=== PATIENT | female | born 1990 | race Caucasian/White ===

== ENCOUNTER 2021-12-26 11:51 | Emergency (ER) | payer SELFPAY ==
--- NOTE | 2021-12-26 13:01 | RAD REPORT ---
EXAM DESCRIPTION: [place] Single View12/26/2021 12:30 pm CLINICAL HISTORY: Chest pain COMPARISON: none FINDINGS: The lungs appear clear of acute infiltrate. The heart is normal size IMPRESSION: No acute abnormalities displayed
[2021-12-26] MEDS ORDERED: METOCLOPRAMIDE 10 MG/2mL INJ ONE (13:54)
[2021-12-26] MEDS ORDERED: KETOROLAC 30 MG/ML INJ ONE (13:54)
[2021-12-26] MEDS ORDERED: NA CHLORIDE 0.9% 1,000 ML ONE (13:54)
[2021-12-26 14:07] LABS: BUN Blood Urea Nitrogen 15 mg/dL (7-18); Bicarbonate 29 mmol/L (21-32); Glomerular Filtration Rate 104 ml/min (=/>90); Glucose Level 93 mg/dL (74-106); Potassium 3.8 mmol/L (3.5-5.1); Sodium Level 135 mmol/L (136-145)
[2021-12-26 14:09] LABS: Troponin High Sensitivity < 3.0 pg/mL (<58.9)
[2021-12-26 14:43] LABS: Hematocrit 35.4 % (36.0-45.0); MCV 91.7 fL (80-100); RBC Red Blood Cell Count 3.86 M/uL (3.86-4.86)
[2021-12-26 14:44] LABS: Absolute Lymphocytes (CBC) 2.6 K/uL (0.7-4.9); Lymphocytes % 57.6 % (15.3-44.8); MPV 8.2 fL (7.6-11.3)
--- NOTE | 2021-12-26 14:48 | ER ---
Nurse's Notes [facility] Name: Kaylen Salinas Age: 31 yrs Sex: Female : 1990 Arrival Date: 12/26/2021 Time: 11:53 Bed 7 Private MD: Diagnosis: Chest pain, unspecified;Headache Presentation: 12/26 11:56 Chief complaint: Patient states: intermittent chest pain that began yesterday described tp1 as stabbing and worsens with deep breathing, rated 5/10. intermittent headache described as throbbing, rated 5/10. denies dizziness, blurred vision, N/V. Coronavirus screen: Vaccine status: Patient reports receiving the 2nd dose of the covid vaccine. Ebola Screen: Patient negative for fever greater than or equal to 101.5 degrees Fahrenheit, and additional compatible Ebola Virus Disease symptoms Patient denies exposure to infectious person. Patient denies travel to an Ebola-affected area in the 21 days before illness onset. Initial Sepsis Screen: Does the patient meet any 2 criteria? No. Patient's initial sepsis screen is negative. Does the patient have a suspected source of infection? No. Patient's initial sepsis screen is negative. Risk Assessment: Do you want to hurt yourself or someone else? Patient reports no desire to harm self or others. Onset of symptoms was December 25, 2021. 11:56 Method Of Arrival: Ambulatory tp1 11:56 Acuity: ANA 3 tp1 Triage Assessment: 11:59 General: Appears in no apparent distress. uncomfortable, Behavior is calm, cooperative. tp1 Pain: Complains of pain in chest and head. Neuro: Unger Agitation-Sedation Scale (RASS): 0 - Alert and Calm Level of Consciousness is awake, alert, obeys commands, Oriented to person, place, time, situation. Cardiovascular: Denies lightheadedness, nausea, vomiting, Patient's skin is warm and dry. 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 - Social history:: Smoking status: Patient/guardian denies using tobacco, Stopped _ months ago 2. Screenin:39 Abuse screen: Denies threats or abuse. Nutritional screening: No deficits noted. tw2 Tuberculosis screening: No symptoms or risk factors identified. Fall Risk None identified. Assessment: 13:47 Pain: Pain does not radiate. Pain began. tw2 13:58 Reassessment: No changes from previously documented assessment. Patient and/or family tw2 updated on plan of care and expected duration. Pain level reassessed. Patient is alert, oriented x 3, equal unlabored respirations, skin warm/dry/pink. 14:55 Reassessment: Patient appears in no apparent distress at this time. Patient and/or tw2 family updated on plan of care and expected duration. Pain level reassessed. Patient is alert, oriented x 3, equal unlabored respirations, skin warm/dry/pink. Patient states feeling better. Patient states symptoms have improved. Vital Signs: 11:56 BP 103 / 54; Pulse 55; Resp 16; Temp 98.1; Pulse Ox 98% on R/A; Weight 74.84 kg; Height tp1 5 ft. 3 in. (160.02 cm); 13:58 BP 90 / 62; Pulse 49; Resp 16; Pulse Ox 100% on R/A; Pain 5/10; tw2 14:30 BP 97 / 76; Pulse 51; Resp 17; Pulse Ox 100% on R/A; tw2 14:47 BP 107 / 71; Pulse 56; Resp 17; Pulse Ox 100% on R/A; tw2 11:56 Body Mass Index 29.23 (74.84 kg, 160.02 cm) tp1 ED Course: 11:53 Patient arrived in ED. rg4 11:55 Shiraz Rice MD is Attending Physician. bs3 11:59 Triage completed. tp1 12:04 Arm band placed on. tp1 12:31 Chest Single View XRAY In Process Unspecified. EDMS 13:17 Bed in low position. Call light in reach. 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 Pulse ox on. NIBP on. tw2 Warm blanket given. 13:38 Piedad Wells RN is Primary Nurse. tw2 13:39 Attending Physician role handed off by Shriaz Rice MD ms3 13:39 Alon Easley DO is Attending Physician. ms3 13:41 Missed attempt(s): 20 gauge in right antecubital area. Bleeding controlled, band aid jw7 applied, catheter tip intact. 13:43 Initial lab(s) drawn, by ED staff, sent to lab. Inserted saline lock: 22 gauge in left dh3 forearm, using aseptic technique. Blood collected. 13:47 Patient maintains SpO2 saturation greater than 95% on room air. tw2 14:47 Mukul Corona DO is Referral Physician. ms3 14:55 No provider procedures requiring assistance completed. IV discontinued, intact, tw2 bleeding controlled, No redness/swelling at site. Pressure dressing applied. Administered Medications: 13:52 Drug: NS 0.9% 1000 ml Route: IV; Rate: 1 bolus; Site: left antecubital; tw2 14:46 Follow up: Response: No adverse reaction; IV Status: Completed infusion; IV Intake: tw2 1000ml 13:52 Drug: Reglan (metoCLOPramide) 10 mg Route: IVP; Site: left antecubital; tw2 14:46 Follow up: Response: No adverse reaction tw2 13:55 Drug: Ketorolac 15 mg Route: IVP; Site: left antecubital; tw2 14:46 Follow up: Response: No adverse reaction; Pain is decreased tw2 Medication: 13:47 VIS not applicable for this client. tw2 Intake: 14:46 IV: 1000ml; Total: 1000ml. tw2 Outcome: 14:47 Discharge ordered by . ms3 14:55 Discharged to home ambulatory. tw2 14:55 Condition: stable 14:55 Discharge instructions given to patient, Instructed on discharge instructions, follow up and referral plans. Demonstrated understanding of instructions, follow-up care. 14:56 Patient left the ED. tw2 Signatures: Dispatcher [employer] EDMS Piedad Wells RN RN tw2 Luba Phan 4 Selene Rosenthal [facility] Alon Easley DO DO ms3 Danielle Beckman RN RN tp1 Sanjuana Howard jw7 Shiraz Rice MD MD bs3 Corrections: (The following items were deleted from the chart) 14:47 14:44 BP 97 / 76; Pulse 51bpm; Resp 17bpm; Pulse Ox 100% RA; tw2 tw2
--- NOTE | 2021-12-26 14:48 | EDPHYS ---
Physician Documentation [facility] Name: Kaylen Salinas Age: 31 yrs Sex: Female : 1990 Arrival Date: 12/26/2021 Time: 11:53 Bed 7 Private MD: ED Physician Alon Easley HPI: 12/26 12:07 This 31 yrs old Female presents to ER via Ambulatory with complaints of Chest bs3 Pain, Headache. 12:07 The patient or guardian reports chest pain that is located primarily in the anterior bs3 aspect of left upper chest. The pain does not radiate. Associated signs and symptoms: The patient has no apparent associated signs or symptoms. The chest pain is described as aching. Duration: The patient or guardian reports multiple episodes, that wax and wane. Modifying factors: the symptoms are aggravated by breathing. Notes that she was at her home yesterday cleaning dishes when she developed left-sided chest pain it last minutes at a time worse with inspiration she then developed a headache as well the chest pain does not radiate it is moderate intensity worse with breathing she denies any numbness tingling or weakness she notes that the headache is not associated with blurry vision neck pain or stiffness or anything else it was gradual in onset headache not associated with syncope or anything else she does note that she has a history of she is supposed to be on 3 medications . 13:23 Pt also endorses hx of depression, anxiety, bipolar disorder, no current si/hi. 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 - Social history:: Smoking status: Patient/guardian denies using tobacco, Stopped _ months ago 2. ROS: 13:05 Constitutional: Negative for body aches, chills. bs3 13:05 Eyes: Negative for acute changes, blurry vision. 13:05 ENT: Negative for injury or acute deformity, Gum pain 13:05 Neck: Negative for pain with movement, stiffness, tenderness. 13:05 Cardiovascular: Positive for chest pain, Negative for orthopnea, palpitations. 13:05 Respiratory: Negative for cough, hemoptysis, shortness of breath. 13:05 Abdomen/GI: Negative for abdominal pain, nausea and vomiting, nausea, vomiting, and diarrhea. 13:05 All other systems are negative. 14:48 Constitutional: Negative for fever, and chills. ms3 Exam: 13:07 Constitutional: This is a well developed, well nourished patient who is awake, alert, bs3 and in no acute distress. Head/Face: Normocephalic, atraumatic. Eyes: Pupils equal round and reactive to light, extra-ocular motions intact. Lids and lashes normal. ENT: mmm, no posterior phyarngeal erythema Neck: Trachea midline, no thyromegaly, no neck stiffness Chest/axilla: Normal chest wall appearance and motion. Nontender with no deformity. No lesions are appreciated. Cardiovascular: Regular rate and rhythm with a normal S1 and S2. symmetric pulses in upper extremities Respiratory: Lungs have equal breath sounds bilaterally, clear to auscultation, no respiratory distress Abdomen/GI: Soft, non-tender, no rebound or guarding Back: No spinal tenderness. No costovertebral tenderness. Full range of motion. Skin: Warm, dry with normal turgor. Normal color with no rashes, no lesions, and no evidence of cellulitis. MS/ Extremity: Pulses equal, no cyanosis. Neurovascular intact. Full, normal range of motion. Neuro: Awake and alert, GCS 15, oriented to person, place, time, and situation. Cranial nerves II-XII grossly intact. Motor strength 5/5 in all extremities. Sensory grossly intact. Psych: Awake, alert, with orientation to person, place and time. Behavior, mood, and affect are within normal limits. Vital Signs: 11:56 BP 103 / 54; Pulse 55; Resp 16; Temp 98.1; Pulse Ox 98% on R/A; Weight 74.84 kg; Height tp1 5 ft. 3 in. (160.02 cm); 13:58 BP 90 / 62; Pulse 49; Resp 16; Pulse Ox 100% on R/A; Pain 5/10; tw2 14:30 BP 97 / 76; Pulse 51; Resp 17; Pulse Ox 100% on R/A; tw2 14:47 BP 107 / 71; Pulse 56; Resp 17; Pulse Ox 100% on R/A; tw2 11:56 Body Mass Index 29.23 (74.84 kg, 160.02 cm) tp1 MDM: 13:11 Differential diagnosis: acute myocardial infarction, acute pericarditis, coronary bs3 artery disease pulmonary embolus. HEART Score: History: Slightly Suspicious (0), ECG: Normal (0), Age: < or = 45 years (0), Risk Factors: No Risk Factors Known (0), Troponin: < or = 1 x Normal Limit (0), Total Score = 1. The patient's pulmonary embolism risk score was calculated as follows: No Risks (0 Pts). ED course: 31yo with headache, and chest pain, perc neg, venetie ira sah neg, no blurry vision, no neck pain, not consistent with dissection, possible msk/migraine/stress (pt uninsured, hx of anxiety/depression/bipolar) pt needs outpatient f/u. Will r/o acs, will r/o pna. ED course: ecg without st elevaiton or depression qtc 484, sinus bradycardia at 51. 13:22 Patient medically screened. bs3 13:39 Transition of care: Care assumed from Shiraz Rice MD. ms3 14:47 Data reviewed: vital signs, nurses notes, lab test result(s), EKG, radiologic studies, ms3 and as a result, I will discharge patient. Data interpreted: monitor technician: rate is 55 beats/min, rhythm is sinus bradycardia, with no ectopy, Interpretation: normal rhythm, bradycardia. Counseling: I had a detailed discussion with the patient and/or guardian regarding: the historical points, exam findings, and any diagnostic results supporting the discharge/admit diagnosis, lab results, radiology results, the need for outpatient follow up, to return to the emergency department if symptoms worsen or persist or if there are any questions or concerns that arise at home. ED course: Patient improved, alert and oriented x4, in no apparent distress, nontoxic-appearing, ambulatory in emergency department. Patient to follow-up with Dr. Corona within 48 hours. Patient stands and agrees with plan. All questions were answered. Return precautions discussed include worsening symptoms, or any other concerns.. 12/26 12:07 Order name: CBC with Diff; Complete Time: 14:49 bs3 12/26 12:07 Order name: BMP; Complete Time: 14:34 bs3 12/26 12:07 Order name: Troponin High Sensitivity; Complete Time: 14:34 bs3 12/26 12:07 Order name: Chest Single View XRAY; Complete Time: 13:22 bs3 12/26 12:07 Order name: EKG; Complete Time: 12:08 bs3 12/26 13:39 Order name: IV Start; Complete Time: 13:40 tw2 Administered Medications: 13:52 Drug: NS 0.9% 1000 ml Route: IV; Rate: 1 bolus; Site: left antecubital; tw2 14:46 Follow up: Response: No adverse reaction; IV Status: Completed infusion; IV Intake: tw2 1000ml 13:52 Drug: Reglan (metoCLOPramide) 10 mg Route: IVP; Site: left antecubital; tw2 14:46 Follow up: Response: No adverse reaction tw2 13:55 Drug: Ketorolac 15 mg Route: IVP; Site: left antecubital; tw2 14:46 Follow up: Response: No adverse reaction; Pain is decreased tw2 Disposition Summary: 12/26/21 14:47 Discharge Ordered Location: Home ms3 Condition: Stable ms3 Diagnosis - Chest pain, unspecified ms3 - Headache ms3 Followup: ms3 - With: - When: 48 Hours - Reason: Recheck today's complaints, Re-evaluation by your physician Discharge Instructions: - Discharge Summary Sheet tw2 - Nonspecific Chest Pain, Adult ms3 - General Headache Without Cause ms3 Forms: - Work release form tw2 - Medication Reconciliation Form ms3 - Thank You Letter ms3 - Antibiotic Education ms3 - Prescription Opioid Use ms3 Signatures: Dispatcher [employer] Piedad Car RN RN tw2 Alon Easley DO DO ms3 Danielle Beckman RN RN tp1 Shiraz Rice MD MD bs3 Corrections: (The following items were deleted from the chart) 14:54 12:07 Urine Test ordered. bs3 tw2
[2021-12-26 15:01] VITALS: TEMP 98.1
[2021-12-26 15:04] VITALS: O2SAT 100
[2021-12-26 15:09] VITALS: BP 107/71
--- NOTE | 2021-12-27 13:58 | EKG ---
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
== END 2021-12-26 14:56 | disposition home or self-care (01) ==
LOC: ER 11:51
DX: R07.89 Other chest pain (principal); R51.9 Headache, unspecified; E03.9 Hypothyroidism, unspecified; F31.9 Bipolar disorder, unspecified
CPT/HCPCS: 36415; 71045; 80048; 84484; 85025; 93005; J2765; J7030

== ENCOUNTER 2023-02-11 17:13 | Emergency (ER) | payer SELFPAY ==
--- NOTE | 2023-02-11 17:40 | ER ---
Nurse's Notes [facility] Name: Kaylen Salinas Age: 32 yrs Sex: Female : 1990 Arrival Date: 02/11/2023 Time: 17:13 Bed IW1 Private MD: Diagnosis: Local infection of the skin and subcutaneous tissue, unspecified Presentation: 02/11 17:23 Chief complaint: Patient states: she has had a bite on her right middle finger for ap3 approx one week. patient is also feeling ill, but is feeling better. patient complains of not having much of an appetite and increase worsening in appearance of right middle finger. Coronavirus screen: At this time, the client does not indicate any symptoms associated with coronavirus-19. Ebola Screen: No symptoms or risks identified at this time. Initial Sepsis Screen: Does the patient meet any 2 criteria? No. Patient's initial sepsis screen is negative. Does the patient have a suspected source of infection? Yes: Skin breakdown/wound. Risk Assessment: Do you want to hurt yourself or someone else? Patient reports no desire to harm self or others. Onset of symptoms was February 04, 2023. 17:23 Method Of Arrival: Ambulatory ap3 17:23 Acuity: ANA 4 ap3 Triage Assessment: 17:28 Bite description: bite sustained to dorsal aspect of distal phalanx of right middle ap3 finger by an unknown animal, animal information: vaccination(s) is not applicable. General: Appears in no apparent distress. Behavior is calm, cooperative, appropriate for age. Pain: Complains of pain in dorsal aspect of distal phalanx of right middle finger. Neuro: Level of Consciousness is awake, alert, obeys commands, Oriented to person, place, time, situation. Cardiovascular: Patient's skin is warm and dry. Respiratory: Airway is patent Respiratory effort is even, unlabored, Respiratory pattern is regular, symmetrical. 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 - Social history:: Smoking status: Patient denies any tobacco usage or history of. Screenin:28 [facility] ED Fall Risk Assessment (Adult) History of falling in the last 3 months, ap3 including since admission No falls in past 3 months (0 pts). Abuse screen: Denies threats or abuse. Nutritional screening: No deficits noted. Tuberculosis screening: No symptoms or risk factors identified. Assessment: 17:29 Derm: Skin wound right middle finger Skin is. ap3 Vital Signs: 17:23 BP 103 / 58; Pulse 64; Resp 18; Temp 98.2; Pulse Ox 100% ; Weight 74.84 kg; Pain 2/10; ap3 17:23 Pain Scale: Adult ap3 ED Course: 17:19 Patient arrived in ED. mg5 17:21 [facility] kb 17:21 Alon Easley DO is Attending Physician. kb 17:25 Triage completed. ap3 17:29 Arm band placed on right wrist. ap3 17:29 No provider procedures requiring assistance completed. Patient did not have IV access ap3 during this emergency room visit. 17:30 Patient has correct armband on for positive identification. Adult w/ patient. ap3 18:15 Provided Education on: discharge instructions. ap3 Administered Medications: No medications were administered Medication: 17:29 VIS not applicable for this client. ap3 Outcome: 17:29 Condition: good ap3 17:39 Discharge ordered by . kb 18:15 Discharged to home ap3 18:15 Discharge instructions given to patient, 18:15 Instructed on discharge instructions, follow up and referral plans. medication usage, Demonstrated understanding of instructions, follow-up care, medications, Prescriptions given X 3, 18:15 Patient left the ED. ap3 Signatures: Sangita Shaw FNP-C FNP-Ckb Prokisch, Amanda, RN RN ap3 Amber Landry mg5
--- NOTE | 2023-02-11 17:40 | EDPHYS ---
Physician Documentation [facility] Name: Kaylen Salinas Age: 32 yrs Sex: Female : 1990 Arrival Date: 02/11/2023 Time: 17:13 Bed IW1 Private MD: ED Physician Alon Easley HPI: 02/11 17:38 This 32 yrs old Female presents to ER via Ambulatory with complaints of Insect Bite. kb 17:38 the patient presents with a swollen area of the dorsal aspect of distal phalanx of kb right middle finger. Description: erythematous, swollen. Onset: The symptoms/episode began/occurred 1 week(s) ago. Possible cause(s): unknown. Associated signs and symptoms: Pertinent positives: erythema, swelling. Modifying factors: the symptoms are alleviated by nothing, the symptoms are aggravated by pressure, touching. Severity of symptoms: At their worst the symptoms were moderate, in the emergency department the symptoms are unchanged. The patient has not experienced similar symptoms in the past. The patient has not recently seen a physician. Pt reports she believes she was bitten by something on right middle finger. Reports redness and swelling to area. States it drained, but is still red and swollen. 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 - Social history:: Smoking status: Patient denies any tobacco usage or history of. ROS: 17:36 Constitutional: Negative for fever, chills, and weight loss, kb 17:36 Skin: Positive for erythema, swelling, of the dorsal aspect of distal phalanx of right middle finger, 17:36 All other systems are negative, Exam: 17:36 Constitutional: This is a well developed, well nourished patient who is awake, alert, kb and in no acute distress. Head/Face: Normocephalic, atraumatic. ENT: Moist Mucous membranes Cardiovascular: Regular rate Respiratory: Respirations even and unlabored. No increased work of breathing. Talking in full sentences MS/ Extremity: Pulses equal, no cyanosis. Neurovascular intact. Full, normal range of motion. Neuro: Awake and alert, GCS 15, oriented to person, place, time, and situation. Moves all extremities. Normal gait. 17:36 Skin: Appearance: normal except for affected area, Color: erythematous, swelling, Vital Signs: 17:23 BP 103 / 58; Pulse 64; Resp 18; Temp 98.2; Pulse Ox 100% ; Weight 74.84 kg; Pain 2/10; ap3 17:23 Pain Scale: Adult ap3 MDM: 17:21 Patient medically screened. kb 17:36 Data reviewed: vital signs, nurses notes. kb 17:39 Differential diagnosis: abscess, allergic reaction, cellulitis, insect bite. kb Counseling: I had a detailed discussion with the patient and/or guardian regarding the historical points, exam findings, and any diagnostic results supporting the discharge/admit diagnosis, the need for outpatient follow up, a family practitioner, to return to the emergency department if symptoms worsen or persist or if there are any questions or concerns that arise at home. ED course: No fluctuance or drainable abscess appreciated. Will prescribe antibiotics. Administered Medications: No medications were administered Disposition: 22:00 I was immediately available on-site in the Emergency Department for consultation in the dc3 care of the patient. Disposition Summary: 02/11/23 17:39 Discharge Ordered Notes: Location: Home kb Condition: Stable kb Diagnosis - Local infection of the skin and subcutaneous tissue, unspecified kb Followup: kb - With: Emergency Department - When: As needed - Reason: Worsening of condition Followup: kb - With: Private Physician - When: 2 - 3 days - Reason: Recheck today's complaints, Continuance of care, Re-evaluation by your physician Discharge Instructions: - Discharge Summary Sheet kb - Wound Infection, [id number] kb - Paronychia, [id number] kb Forms: - Medication Reconciliation Form kb - Thank You Letter kb - Antibiotic Education kb - Prescription Opioid Use kb - Patient Portal Instructions kb - Leadership Thank You Letter kb Prescriptions: - mupirocin 2 % Topical ointment - apply 1 application TOPICAL route 3 times per day; 1 unit; Refills: 0, Product kb Selection Permitted - Zofran 4 mg Oral tablet - take 1 tablet ORAL route every 6 hours As needed; 12 tablet; Refills: 0, kb Product Selection Permitted - Bactrim DS 800-160 mg Oral Tablet - take 1 tablet ORAL route every 12 hours for 7 days; 14 tablet; Refills: 0, kb Product Selection Permitted Signatures: Sangita Shaw FNP-C FNP-Ckb Prokisch, Amanda, RN RN ap3 Alon Easley DO DO ms3
[2023-02-11 18:59] VITALS: BP 103/58; TEMP 98.2; O2SAT 100
== END 2023-02-11 18:15 | disposition home or self-care (01) ==
LOC: ER 17:13
DX: L08.9 Local infection of the skin and subcutaneous tissue, unspecified (principal)
CPT/HCPCS: 99283

== ENCOUNTER 2023-03-11 19:46 | Emergency (ER) | payer SELFPAY ==
[2023-03-11 20:45] LABS: Specific Gravity 1.018 (1.005-1.030)
--- NOTE | 2023-03-11 20:53 | RAD REPORT ---
EXAM DESCRIPTION: RAD - Knee Left 3 View - 03/11/2023 8:41 pm CLINICAL HISTORY: PAIN COMPARISON: No comparisons TECHNIQUE: Left knee, 3 views. FINDINGS: Sequelae of left proximal tibial plate and screw fixation. Osseous along the lateral tibia l plateau and subchondral compression deformity along the medial tibial plateau are favored to be chr onic. Moderately prominent tibial tuberosity. No evidence of an acute fracture, dislocation or perios teal reaction.Up to date, most pronounced medially. No significant effusion. Clinical concerns for internal derangement or occult bony injury could be further assessed with MR im aging. IMPRESSION: No acute osseus abnormality. Chronic findings as above.
[2023-03-11] MEDS ORDERED: KETOROLAC 30 MG/ML INJ ONE (21:01)
--- NOTE | 2023-03-11 21:13 | RAD REPORT ---
EXAM DESCRIPTION: US - Extremity Venous Uni Ltd - 03/11/2023 9:04 pm CLINICAL HISTORY: Pain COMPARISON: None. TECHNIQUE: Real-time sonographic evaluation of the left lower extremity deep venous system was perfo rmed. FINDINGS: Normal compressibility, flow augmentation, phasic flow and spontaneous flow is identified in the left lower extremity deep venous system. No intraluminal filling defects seen. IMPRESSION: No DVT in the left lower extremity.
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
[2023-03-11 22:16] VITALS: TEMP 98.1
[2023-03-11 22:18] VITALS: O2SAT 100
[2023-03-11 22:20] VITALS: BP 90/62
== END 2023-03-11 22:08 | disposition home or self-care (01) ==
LOC: ER 19:46
DX: M25.562 Pain in left knee (principal)
CPT/HCPCS: 81025; 93971; 96372; 99285

== ENCOUNTER 2023-07-28 17:28 | Emergency (ER) | payer SELFPAY ==
[2023-07-28] MEDS ORDERED: KETOROLAC 30 MG/ML INJ ONE (19:21)
[2023-07-28] MEDS ORDERED: dexAMETHasone 10 MG/ML VIAL ONE (19:21)
[2023-07-28] MEDS ORDERED: DIPHENHYDRAMINE 50 MG/ML VIAL ONE (19:22)
[2023-07-28] MEDS ORDERED: METOCLOPRAMIDE 10 MG/2mL INJ ONE (19:22)
[2023-07-28] MEDS ORDERED: NA CHLORIDE 0.9% 1,000 ML ONE (19:22)
--- NOTE | 2023-07-28 20:04 | ER ---
Nurse's Notes [facility] Name: Kaylen Salinas Age: 32 yrs Sex: Female : 1990 Arrival Date: 07/28/2023 Time: 17:28 Bed DX3 Private MD: Diagnosis: Headache Presentation: 07/27 17:55 Chief complaint: Patient states: Nose bleed yesterday, frontal headache since yesterday ph as well, denies N/V or sensitivity to light or sound. Coronavirus screen: Vaccine status:. Ebola Screen: No symptoms or risks identified at this time. Initial Sepsis Screen: Does the patient meet any 2 criteria? No. Patient's initial sepsis screen is negative. Does the patient have a suspected source of infection?. Risk Assessment: Do you want to hurt yourself or someone else? Patient reports no desire to harm self or others. Onset of symptoms was July 28, 2023. 17:55 Method Of Arrival: Ambulatory ph 17:55 Acuity: ANA 3 ph Triage Assessment: 17:58 Headache History: The patient has had previous headaches. General: Appears in no ph apparent distress. Behavior is calm, cooperative. Pain: Complains of pain in top of head, right uatsdin and left uatsdin. Neuro: Level of Consciousness is awake, alert, obeys commands, Oriented to person, place, time, situation. 20:24 Pain: Pain currently is 4 out of 10 on a pain scale. Pain began 1 day ago. Also lg3 complains of photophobia. Historical: - Allergies: 17:57 No Known Allergies; ph - PMHx: 17:57 Anxiety; Bipolar disorder; depressive disorder; hypoadrenalism; HYPOPITUITARISM; ph Hypothyroidism; PTSD; - Immunization history:: Adult Immunizations unknown. - Infectious Disease History:: Denies. - Social history:: Smoking status: Patient reports the use of cigarette tobacco products, denies chronic smoking, but will smoke occasionally. Screenin:08 [facility] ED Fall Risk Assessment (Adult) History of falling in the last 3 months, lg3 including since admission No falls in past 3 months (0 pts). Abuse screen: Denies threats or abuse. Denies injuries from another. Nutritional screening: No deficits noted. Tuberculosis screening: No symptoms or risk factors identified. Assessment: 19:08 General: Appears in no apparent distress. uncomfortable, Behavior is calm, cooperative. lg3 Pain: Complains of pain in head Pain does not radiate. Neuro: Unger Agitation-Sedation Scale (RASS): 0 - Alert and Calm Level of Consciousness is awake, alert, obeys commands, Oriented to person, place, time, situation, Reports headache photophobia. Cardiovascular: No deficits noted. Denies chest pain, shortness of breath, Capillary refill < 3 seconds Clubbing of nail beds is absent JVD is absent Patient's skin is warm and dry. Respiratory: No deficits noted. Airway is patent Respiratory effort is even, unlabored, Respiratory pattern is regular, symmetrical, Breath sounds are clear bilaterally. GI: No deficits noted. No signs and/or symptoms were reported involving the gastrointestinal system. Abdomen is round non-distended. : No deficits noted. No signs and/or symptoms were reported regarding the genitourinary system. EENT: No deficits noted. No signs and/or symptoms were reported regarding the EENT system. Derm: No deficits noted. No signs and/or symptoms reported regarding the dermatologic system. Skin is intact, is healthy with good turgor, Skin is dry, Skin is normal, Skin temperature is warm. Musculoskeletal: No deficits noted. No signs and/or symptoms reported regarding the musculoskeletal system. Circulation, motion, and sensation intact. Range of motion: intact in all extremities. Vital Signs: 17:55 BP 108 / 56; Pulse 56; Resp 18; Temp 97.5; Pulse Ox 97% on R/A; Weight 68.04 kg; Height ph 5 ft. 4 in. ; 19:08 BP 113 / 69; Pulse 59; Resp 17 S; Temp 97.2; Pulse Ox 99% on R/A; lg3 20:24 BP 111 / 72; Pulse 57; Resp 17 S; Pulse Ox 98% on R/A; lg3 17:55 Body Mass Index 25.75 (68.04 kg, 162.56 cm) ph ED Course: 17:32 Patient arrived in ED. rg4 17:35 Alon Easley DO is Attending Physician. ms3 17:57 Triage completed. ph 17:58 Arm band placed on Patient placed in waiting room, Patient notified of wait time. ph 18:45 Inserted saline lock: 22 gauge in right antecubital area, using aseptic technique. bc6 19:08 Patient has correct armband on for positive identification. Warm blanket given. Family lg3 accompanied patient. 19:08 No provider procedures requiring assistance completed. Patient maintains SpO2 lg3 saturation greater than 95% on room air. 20:04 Gallo Cabrera MD is Referral Physician. ms3 20:04 Mukul Corona DO is Referral Physician. ms3 20:25 IV discontinued, intact, bleeding controlled, No redness/swelling at site. Pressure lg3 dressing applied. Administered Medications: 19:38 Drug: metoCLOPramide IVP 10 mg IVP once; over 1 to 2 minutes Route: IVP; Site: right lg3 antecubital; 20:20 Follow up: Response: No adverse reaction lg3 19:38 Drug: diphenhydrAMINE IVP 25 mg IVP once Route: IVP; Site: right antecubital; lg3 20:19 Follow up: Response: No adverse reaction; Marked relief of symptoms lg3 19:38 Drug: NS 0.9% IV 1000 ml IV at 1 bolus Per protocol; 1000 mL bolus Route: IV; Rate: 1 lg3 bolus; Site: right antecubital; 20:19 Follow up: IV Status: Completed infusion; IV Intake: 1000ml lg3 19:39 Drug: Ketorolac IVP 10 mg 10 mg IVP once Route: IVP; Site: right antecubital; lg3 20:20 Follow up: Response: No adverse reaction; Marked relief of symptoms lg3 19:39 Drug: Decadron - Dexamethasone IVP 10 mg IVP once Route: IVP; Site: right antecubital; lg3 20:20 Follow up: Response: No adverse reaction; Marked relief of symptoms lg3 Medication: 19:08 VIS not applicable for this client. lg3 Intake: 20:19 IV: 1000ml; Total: 1000ml. lg3 Outcome: 20:04 Discharge ordered by . ms3 20:25 Discharged to home ambulatory, lg3 20:25 Condition: stable 20:25 Discharge instructions given to patient, Instructed on discharge instructions, follow up and referral plans. Demonstrated understanding of instructions, follow-up care, 20:25 Patient left the ED. lg3 Signatures: Ama Rosas RN RN ph Garcia, Rubi 4 Andie Ang RN RN lg3 Alon Easley DO DO ms3 Tamika Rodriguez bc6
--- NOTE | 2023-07-28 20:04 | EDPHYS ---
Physician Documentation [facility] Name: Kaylen Salinas Age: 32 yrs Sex: Female : 1990 Arrival Date: 07/28/2023 Time: 17:28 Bed DX3 Private MD: ED Physician Alon Easley HPI: 07/27 20:12 This 32 yrs old Female presents to ER via Ambulatory with complaints of Headache. ms3 20:12 32-year-old female with past medical history anxiety, bipolar disorder, depression, ms3 hypoadrenalism, hypopituitary presents to the emergency department for headache that began yesterday. Patient rates pain a 6/10 and states it is located in her bilateral temporal region. Patient states she took ibuprofen with improvement of her headache. Patient denies any inciting factors. Patient denies weakness, nausea, vomiting, fevers, chills. Historical: - Allergies: 17:57 No Known Allergies; ph - PMHx: 17:57 Anxiety; Bipolar disorder; depressive disorder; hypoadrenalism; HYPOPITUITARISM; ph Hypothyroidism; PTSD; - Immunization history:: Adult Immunizations unknown. - Infectious Disease History:: Denies. - Social history:: Smoking status: Patient reports the use of cigarette tobacco products, denies chronic smoking, but will smoke occasionally. ROS: 20:12 Constitutional: Negative for fever, and chills. Neck: Negative for injury, pain, and ms3 swelling, Cardiovascular: Negative for chest pain, and palpitations. Respiratory: Negative for shortness of breath, cough, wheezing, and pleuritic chest pain, Abdomen/GI: Negative for abdominal pain, nausea, vomiting, diarrhea, and constipation, 20:12 Neuro: Positive for headache, Exam: 20:12 Constitutional: This is a well developed, well nourished patient who is awake, alert, ms3 and in no acute distress. Head/Face: Normocephalic, atraumatic. Neck: Trachea midline, no cervical lymphadenopathy. Supple, full range of motion without nuchal rigidity, or vertebral point tenderness. No Meningismus. Chest/axilla: Normal chest wall appearance and motion. Nontender with no deformity. Cardiovascular: Regular rate and rhythm with a normal S1 and S2. No gallops, murmurs, or rubs. Normal PMI, no JVD. No pulse deficits. Respiratory: Lungs have equal breath sounds bilaterally, clear to auscultation and percussion. No rales, rhonchi or wheezes noted. No increased work of breathing, no retractions or nasal flaring. Abdomen/GI: Soft, non-tender, with normal bowel sounds. No distension or tympany. No guarding or rebound. No evidence of tenderness throughout. Skin: Warm, dry with normal turgor. Normal color with no rashes, no lesions, and no evidence of cellulitis. MS/ Extremity: Pulses equal, no cyanosis. Neurovascular intact. Full, normal range of motion. Neuro: Awake and alert, GCS 15, oriented to person, place, time, and situation. Cranial nerves II-XII grossly intact. Motor strength 5/5 in all extremities. Sensory grossly intact. Cerebellar exam normal. Normal gait. Vital Signs: 17:55 BP 108 / 56; Pulse 56; Resp 18; Temp 97.5; Pulse Ox 97% on R/A; Weight 68.04 kg; Height ph 5 ft. 4 in. ; 19:08 BP 113 / 69; Pulse 59; Resp 17 S; Temp 97.2; Pulse Ox 99% on R/A; lg3 20:24 BP 111 / 72; Pulse 57; Resp 17 S; Pulse Ox 98% on R/A; lg3 17:55 Body Mass Index 25.75 (68.04 kg, 162.56 cm) ph MDM: 17:52 Patient medically screened. ms3 20:12 Differential diagnosis: hypertensive headache, migraine, tension headache. Data ms3 reviewed: vital signs, nurses notes, and as a result, I will discharge patient. I considered the following discharge prescriptions or medication management in the emergency department Medications were administered in the Emergency Department. See MAR. Counseling: I had a detailed discussion with the patient and/or guardian regarding the historical points, exam findings, and any diagnostic results supporting the discharge/admit diagnosis, the need for outpatient follow up, to return to the emergency department if symptoms worsen or persist or if there are any questions or concerns that arise at home. Special discussion: I discussed with the patient/guardian in detail that at this point there is no indication for admission to the hospital. It is understood, however, that if the symptoms persist or worsen the patient needs to return immediately for re-evaluation. ED course: On reevaluation patient is improved, alert and oriented x 4, no apparent distress, nontoxic-appearing, ambulatory in the emergency department. Patient to follow-up with neurology and primary care in 2 to 3 days. Patient understands and agrees with plan. All questions were answered. Return precautions discussed include worsening symptoms, or any other concerns. 07/27 18:19 Order name: IV Start; Complete Time: 18:45 ll1 Administered Medications: 19:38 Drug: metoCLOPramide IVP 10 mg IVP once; over 1 to 2 minutes Route: IVP; Site: right lg3 antecubital; 20:20 Follow up: Response: No adverse reaction lg3 19:38 Drug: diphenhydrAMINE IVP 25 mg IVP once Route: IVP; Site: right antecubital; lg3 20:19 Follow up: Response: No adverse reaction; Marked relief of symptoms lg3 19:38 Drug: NS 0.9% IV 1000 ml IV at 1 bolus Per protocol; 1000 mL bolus Route: IV; Rate: 1 lg3 bolus; Site: right antecubital; 20:19 Follow up: IV Status: Completed infusion; IV Intake: 1000ml lg3 19:39 Drug: Ketorolac IVP 10 mg 10 mg IVP once Route: IVP; Site: right antecubital; lg3 20:20 Follow up: Response: No adverse reaction; Marked relief of symptoms lg3 19:39 Drug: Decadron - Dexamethasone IVP 10 mg IVP once Route: IVP; Site: right antecubital; lg3 20:20 Follow up: Response: No adverse reaction; Marked relief of symptoms lg3 Disposition Summary: 07/28/23 20:04 Discharge Ordered Notes: Location: Home ms3 Condition: Stable ms3 Diagnosis - Headache ms3 Followup: ms3 - With: Gallo Cabrera MD - When: 2 - 3 days - Reason: Recheck today's complaints Followup: ms3 - With: Mukul Corona DO - When: 2 - 3 days - Reason: Recheck today's complaints Discharge Instructions: - Discharge Summary Sheet ms3 - General Headache Without Cause ms3 Forms: - Medication Reconciliation Form ms3 - Thank You Letter ms3 - Antibiotic Education ms3 - Prescription Opioid Use ms3 - Patient Portal Instructions ms3 - Leadership Thank You Letter ms3 Signatures: Ama Rosas RN RN ph Able, Andie, RN RN lg3 Dheeraj Crawford, RN RN ll1 Alon Easley, DO HATHAWAY ms3
[2023-07-29 03:24] VITALS: BP 111/72; TEMP 97.2; O2SAT 98
== END 2023-07-28 20:25 | disposition home or self-care (01) ==
LOC: ER 17:28
DX: R51.9 Headache, unspecified (principal)
CPT/HCPCS: 96361; 96374; 96375; 99284; J1100; J1200; J2765; J7030

== ENCOUNTER 2023-08-03 13:05 | Emergency (ER) | payer SELFPAY ==
[2023-08-03] MEDS ORDERED: KETOROLAC 30 MG/ML INJ ONE (14:07)
[2023-08-03] MEDS ORDERED: ONDANSETRON 4 MG/2 ML VIAL ONE (14:07)
[2023-08-03] MEDS ORDERED: NA CHLORIDE 0.9% 1,000 ML ONE (14:08)
[2023-08-03 16:43] LABS: Specific Gravity 1.025 (1.005-1.030)
[2023-08-03 16:44] LABS: Specific Gravity 1.025 (1.005-1.030); Sqamous Epithelial <5 /HPF (None Seen); Urine Bacteria <20 /HPF (<20); Urine Bilirubin NEGATIVE (Negative); Urine Blood 1+ (Negative); Urine Clarity Turbid (Clear); Urine Color Light-Yellow (Yellow); Urine Culture Reflex Order NOT NEEDED; Urine Glucose NEGATIVE (Negative); Urine Ketones NEGATIVE (Negative); Urine Microscopic Reflex YN ORDER UMIC; Urine Nitrite NEGATIVE (Negative); Urine Protein TRACE (Negative); Urine Urobilinogen Normal (Normal); Urine pH 5.5 (5.0-7.0)
[2023-08-03 16:45] LABS: Urine Mucus Slight /HPF (None Seen)
[2023-08-03 16:53] LABS: Absolute Basophils 0.1 K/uL (0-0.5); Absolute Eosinophils 0.2 K/uL (0-0.5); Absolute Lymphocytes (CBC) 3.3 K/uL (0.7-4.9); Absolute Monocytes 0.3 K/uL (0.1-1.3); Absolute Neutrophil 2.6 K/uL (1.8-8.0); Basophils % 0.8 % (0-1.3); Eosinophils % 3.1 % (0-4.4); Hematocrit 40.5 % (36.0-45.0); Hemoglobin 13.8 g/dL (12.0-15.0); Lymphocytes % 51.2 % (15.3-44.8); MCH 30.7 pg (27.0-35.0); MCV 90.1 fL (80-100); MPV 8.2 fL (7.6-11.3); Neutrophils % 39.9 % (41.7-73.7); Nucleated Red Blood Cells % 0.1 % (0-0); Platelets 256 thou/uL (152-406); Red Cell Distribution Width 14.2 % (12.1-15.2)
[2023-08-03 17:03] LABS: Albumin 4.4 g/dL (3.4-5.0); Albumin/Globulin Ratio 0.9 (1.1-1.8); Anion Gap 6.8 mEq/L (5.0-15.0); Bilirubin Total 0.5 mg/dL (0.2-1.0); Potassium 3.8 mEq/L (3.5-5.1); Protein, Total 9.4 g/dL (6.4-8.2)
--- NOTE | 2023-08-03 17:36 | RAD REPORT ---
EXAM DESCRIPTION: CTAbdomen Pelvis W Contrast - 08/03/2023 5:15 pm CLINICAL HISTORY: ABD PAIN COMPARISON: No comparisons TECHNIQUE: CT of the abdomen and pelvis was performed. All CT scans are performed using dose optimization technique as appropriate and may include automated exposure control or mA/KV adjustment according to patient size. FINDINGS: Lower chest: No acute abnormality. Mild circumferential thickened distal esophagus which r eflect mild esophagitis. Liver: Hepatomegaly with steatosis. Biliary: No biliary ductal dilatation. Stomach: No significant focal abnormality. Duodenum: No significant focal abnormality. Pancreas: No significant abnormality. Spleen: No significant abnormality. Adrenal: No suspicious lesions. Kidney/ureter: No hydronephrosis. No renal calculi. Retroperitoneum: No retroperitoneal adenopathy. Vascular: No aneurysm. Bowel: Inflammatory changes in the right upper quadrant in the region of the gallbladder and proximal duodenum.. No appendicitis. Peritoneum: No ascites or free air. Bladder: Grossly unremarkable. Reproductive: No adnexal masses. Bones: No acute fracture. Remote appearing L3 compression fracture. Other: n/a IMPRESSION: Stranding in the right upper quadrant in the region the gallbladder and proximal duodenu m. Cholecystitis more likely however duodenitis or peptic ulcer disease is a consideration as well. C onsider correlation with LFTs and right upper quadrant ultrasound. No biliary duct dilatation is iden tified. No evidence of acute pancreatitis.
--- NOTE | 2023-08-03 18:37 | RAD REPORT ---
EXAM DESCRIPTION: US - Abdomen Exam Limited - 08/03/2023 6:24 pm CLINICAL HISTORY: ABD PAIN COMPARISON: Abdomen Pelvis W Contrast dated 08/03/2023 FINDINGS: The gallbladder demonstrates no gallstones. Trace pericholecystic free fluid. The common b ile duct is normal measuring 2 mm. The liver demonstrates no findings of intrahepatic biliary dilatation. IMPRESSION: Negative for cholelithiasis or acute cholecystitis. Trace nonspecific pericholecystic fl uid. No biliary duct dilatation.
[2023-08-03] MEDS ORDERED: PANTOPRAZOLE 40 MG INJ ONE (19:15)
[2023-08-03] MEDS ORDERED: HYDROCORTISONE SUC 100 MG INJ ONE (19:15)
--- NOTE | 2023-08-03 19:37 | ER ---
Nurse's Notes [facility] Name: Kaylen Salinas Age: 32 yrs Sex: Female : 1990 Arrival Date: 08/03/2023 Time: 13:05 Bed 13 Private MD: Diagnosis: Nausea with vomiting, unspecified;Abdominal pain, unspecified Presentation: 08/02 13:28 Chief complaint: N/V and upper abdominal pain x 3 days. Coronavirus screen: At this hb time, the client does not indicate any symptoms associated with coronavirus-19. Ebola Screen: No symptoms or risks identified at this time. Initial Sepsis Screen: Does the patient meet any 2 criteria? No. Patient's initial sepsis screen is negative. Does the patient have a suspected source of infection? No. Patient's initial sepsis screen is negative. Risk Assessment: Do you want to hurt yourself or someone else? Patient reports no desire to harm self or others. Onset of symptoms was August 01, 2023. 13:28 Method Of Arrival: Ambulatory hb 13:28 Acuity: ANA 3 hb Triage Assessment: 13:30 General: Appears in no apparent distress. uncomfortable, Behavior is calm, cooperative. hb Pain: Pain currently is 7 out of 10 on a pain scale. Neuro: Level of Consciousness is awake, alert, obeys commands, Oriented to person, place, time, situation. Cardiovascular: Patient's skin is warm and dry. Respiratory: Respiratory effort is even, unlabored, Respiratory pattern is regular, symmetrical. GI: Reports upper abdominal pain, nausea, vomiting. 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 - Infectious Disease History:: Denies. - Social history:: Smoking status: Patient denies any tobacco usage or history of. Screenin:43 [facility] ED Fall Risk Assessment (Adult) History of falling in the last 3 months, cp4 including since admission No falls in past 3 months (0 pts) Confusion or Disorientation No (0 pts) Intoxicated or Sedated No (0 pts) Impaired Gait No (0 pts) Mobility Assist Device Used No (0 pt) Altered Elimination No (0 pt) Score/Fall Risk Level 0 - 2 = Low Risk Oriented to surroundings, Maintained a safe environment, Assessed \T\ reinforced patient's understanding of fall precautions, Hourly rounding (assess needs \T\ fall precautionary measures) done. Abuse screen: Denies threats or abuse. Nutritional screening: No deficits noted. Tuberculosis screening: No symptoms or risk factors identified. Assessment: 19:43 General: Appears uncomfortable, Behavior is calm, cooperative, appropriate for age. cp4 Pain:. GI: Bowel sounds present X 4 quads. Abd is soft and non tender X 4 quads. Vital Signs: 13:28 BP 106 / 70; Pulse 62; Resp 16; Temp 97.9(O); Pulse Ox 98% on R/A; Weight 58.97 kg; hb Height 5 ft. 4 in. ; Pain 7/10; 16:00 BP 86 / 66; Pulse 18; Resp 45; Pulse Ox 100% ; cp4 17:00 BP 98 / 67; Pulse 44; Resp 18; Pulse Ox 100% ; cp4 18:00 BP 97 / 61; Pulse 50; Resp 18; Pulse Ox 100% ; cp4 19:00 BP 106 / 66; Pulse 54; Resp 18; Pulse Ox 100% ; cp4 13:28 Body Mass Index 22.31 (58.97 kg, 162.56 cm) hb 13:28 Pain Scale: Adult hb ED Course: 13:07 Patient arrived in ED. mr 13:13 [facility] kb 13:13 Shabbir Jeff MD is Attending Physician. kb 13:29 Triage completed. hb 13:30 Arm band placed on. hb 15:50 No provider procedures requiring assistance completed. Inserted saline lock: 22 gauge cp4 in left forearm, using aseptic technique. Blood collected. 15:50 intact, bleeding controlled, No redness/swelling at site. Pressure dressing applied. cp4 15:55 Anais Bernabe is Primary Nurse. cp4 15:55 CBC with Diff Sent. cp4 15:55 CMP Sent. cp4 15:55 Lipase Sent. cp4 15:55 Test, Urine Sent. cp4 15:55 Urinalysis w/ reflexes Sent. cp4 17:16 CT Abd/Pelvis - IV Contrast Only In Process Unspecified. EDMS 17:49 PHCP role handed off by Sangita Shaw FNP-C kb 17:49 Shabbir Oden PA is PHCP. kb 18:26 US Abdomen Limited In Process Unspecified. EDMS 19:43 Placed in gown. Bed in low position. Call light in reach. Side rails up X 1. Provided cp4 Education on: abdominal pain. Administered Medications: 15:55 Drug: NS 0.9% IV 1000 ml IV at 1 bolus Per protocol; 1000 mL bolus Route: IV; Rate: 1 cp4 bolus; Site: left forearm; 17:37 Follow up: Response: No adverse reaction; IV Status: Completed infusion cp4 15:55 Drug: TORadol - Ketorolac IVP 15 mg IVP once Route: IVP; Site: left forearm; cp4 17:37 Follow up: Response: No adverse reaction cp4 15:55 Drug: Ondansetron IVP 4 mg IVP once; over 2 minutes Route: IVP; Site: left forearm; cp4 17:37 Follow up: Response: No adverse reaction cp4 19:19 Drug: Pantoprazole IVP 40 mg IVP once Route: IVP; Site: left forearm; cp4 19:36 Follow up: Response: No adverse reaction cp4 19:19 Drug: Solu-CORTEF IVP 100 mg IVP once Route: IVP; Site: left forearm; cp4 19:36 Follow up: Response: No adverse reaction cp4 Medication: 19:43 VIS not applicable for this client. cp4 Outcome: 15:50 Discharged to home ambulatory, cp4 15:50 Condition: stable 15:50 Discharge instructions given to patient, Instructed on discharge instructions, follow up and referral plans. Demonstrated understanding of instructions, follow-up care, Prescriptions given X 2, 19:36 Discharge ordered by MD. cp 19:45 Patient left the ED. cp4 Signatures: Dispatcher [employer] EDMS Sanigta Shaw FNP-C FILM OR TAPE LIBRARIAN-Ckb Lelo Stallworth, Reg Reg mr Shabbir Oden PA PA cp Ladan Rodas, RN RN Anais Hyde cp4
--- NOTE | 2023-08-03 19:37 | EDPHYS ---
Physician Documentation [facility] Name: Kaylen Salinas Age: 32 yrs Sex: Female : 1990 Arrival Date: 08/03/2023 Time: 13:05 Bed 13 Private MD: ED Physician Shabbir Jeff HPI: 08/02 13:23 This 32 yrs old Female presents to ER via Unassigned with complaints of Abdominal Pain, kb Vomiting. 13:23 Patient is a 32-year-old female who presents for abdominal pain, nausea and vomiting kb that started 3 days ago and is progressively gotten worse. Denies fever or diarrhea. Denies aggravating or alleviating factors.. 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 - Infectious Disease History:: Denies. - Social history:: Smoking status: Patient denies any tobacco usage or history of. ROS: 13:23 Constitutional: As per HPI kb Exam: 13:23 Constitutional: This is a well developed, well nourished patient who is awake, alert, kb and in no acute distress. Head/Face: Normocephalic, atraumatic. ENT: Moist Mucous membranes Cardiovascular: Regular rate Respiratory: Respirations even and unlabored. No increased work of breathing. Talking in full sentences Skin: Warm, dry with normal turgor. Normal color. MS/ Extremity: Pulses equal, no cyanosis. Neurovascular intact. Full, normal range of motion. Neuro: Awake and alert, GCS 15, oriented to person, place, time, and situation. Moves all extremities. Normal gait. 13:23 Abdomen/GI: Inspection: abdomen appears normal, Bowel sounds: normal, Palpation: soft, in all quadrants, moderate abdominal tenderness, in the left upper quadrant and right lower quadrant, Vital Signs: 13:28 BP 106 / 70; Pulse 62; Resp 16; Temp 97.9(O); Pulse Ox 98% on R/A; Weight 58.97 kg; hb Height 5 ft. 4 in. ; Pain 7/10; 16:00 BP 86 / 66; Pulse 18; Resp 45; Pulse Ox 100% ; cp4 17:00 BP 98 / 67; Pulse 44; Resp 18; Pulse Ox 100% ; cp4 18:00 BP 97 / 61; Pulse 50; Resp 18; Pulse Ox 100% ; cp4 19:00 BP 106 / 66; Pulse 54; Resp 18; Pulse Ox 100% ; cp4 13:28 Body Mass Index 22.31 (58.97 kg, 162.56 cm) hb 13:28 Pain Scale: Adult hb MDM: 13:13 Patient medically screened. kb 13:23 Data reviewed: vital signs, nurses notes. kb 17:49 Transition of care: After a detail discussion of the patient's case, care is kb transferred to Shabbir ALAN. 08/02 13:22 Order name: CBC with Diff; Complete Time: 17:06 hb 08/02 18:54 Interpretation: Normal except: TRESA% 39.9; LYM% 51.2. 08/02 13:22 Order name: CMP; Complete Time: 17:06 hb 08/02 18:57 Interpretation: Normal except: NA 135; BUN 19; CRE 1.03; GFR 74; AST 39; TP 9.4; GLOB cp 5.0; A/G 0.9. 08/02 13:22 Order name: Lipase; Complete Time: 17:06 hb 08/02 18:56 Interpretation: LIP 291; Reviewed. 08/02 13:22 Order name: Test, Urine; Complete Time: 16:44 08/02 13:22 Order name: Urinalysis w/ reflexes; Complete Time: 16:45 hb 08/02 18:57 Interpretation: Normal except: UCLA Turbid; UBLD 1+; UPROT TRACE; UESTR 75; URBC 5-10. 08/02 13:22 Order name: CT Abd/Pelvis - IV Contrast Only; Complete Time: 17:38 hb 08/02 18:58 Interpretation: Report reviewed. 08/02 17:39 Order name: US Abdomen Limited; Complete Time: 18:46 kb 08/02 13:22 Order name: IV Saline Lock; Complete Time: 15:55 hb 08/02 13:22 Order name: Labs collected and sent; Complete Time: 15:55 hb 08/02 19:01 Order name: PO challenge; Complete Time: 19:25 cp Administered Medications: 15:55 Drug: NS 0.9% IV 1000 ml IV at 1 bolus Per protocol; 1000 mL bolus Route: IV; Rate: 1 cp4 bolus; Site: left forearm; 17:37 Follow up: Response: No adverse reaction; IV Status: Completed infusion cp4 15:55 Drug: TORadol - Ketorolac IVP 15 mg IVP once Route: IVP; Site: left forearm; cp4 17:37 Follow up: Response: No adverse reaction cp4 15:55 Drug: Ondansetron IVP 4 mg IVP once; over 2 minutes Route: IVP; Site: left forearm; cp4 17:37 Follow up: Response: No adverse reaction cp4 19:19 Drug: Pantoprazole IVP 40 mg IVP once Route: IVP; Site: left forearm; cp4 19:36 Follow up: Response: No adverse reaction cp4 19:19 Drug: Solu-CORTEF IVP 100 mg IVP once Route: IVP; Site: left forearm; cp4 19:36 Follow up: Response: No adverse reaction cp4 Disposition Summary: 08/03/23 19:36 Discharge Ordered Notes: Location: Home cp Problem: new cp Symptoms: have improved cp Condition: Stable cp Diagnosis - Nausea with vomiting, unspecified cp - Abdominal pain, unspecified cp Followup: cp - With: Private Physician - When: 2 - 3 days - Reason: Recheck today's complaints Discharge Instructions: - Discharge Summary Sheet cp - Abdominal Pain, Adult cp - Nausea and Vomiting, Adult cp Forms: - Medication Reconciliation Form cp - Thank You Letter cp - Antibiotic Education cp - Prescription Opioid Use cp - Patient Portal Instructions cp - Leadership Thank You Letter cp Prescriptions: - Protonix 40 mg Oral Tablet - take 1 tablet ORAL route once daily; 30 tablet; Refills: 0, Product Selection cp Permitted - Zofran 4 mg Oral Tablet - take 1 tablet ORAL route every 12 hours As needed; 20 tablet; Refills: 0, cp Product Selection Permitted Signatures: Dispatcher [employer] Sangita Arce FNP-C FNP-Shabbir Roberts PA PA cp Ladan Rodas RN RN hb Potter, Christina cp4 Corrections: (The following items were deleted from the chart) 13:22 13:22 CBC+H.LAB.BRZ ordered. EDMS EDMS 13: 13:22 COMPREHENSIVE METABOLIC PANEL+C.LAB.BRZ ordered. EDMS EDMS 13: 13:22 LIPASE+C.LAB.BRZ ordered. EDMS EDMS 13: 13:22 Test, Urine+UC.LAB.BRZ ordered. EDMS EDMS 13: 13:22 Urinalysis+U.LAB.BRZ ordered. EDMS EDMS 13: 13:22 Abdomen Pelvis W Con+CT.RAD.BRZ ordered. EDMS EDMS 17:16 17:07 Abdomen Pelvis W Con+CT.RAD.BRZ ordered. EDMS EDMS
[2023-08-04 02:42] VITALS: BP 106/66; TEMP 97.9; O2SAT 100
== END 2023-08-03 19:45 | disposition home or self-care (01) ==
LOC: ER 13:05
DX: R11.2 Nausea with vomiting, unspecified (principal); R10.9 Unspecified abdominal pain
CPT/HCPCS: 36415; 74177; 76705; 80053; 81001; 81025; 83690; 85025; 96361; 96374; 96375; 99284; C9113; J1720; J2405; J7030; Q9967

== ENCOUNTER 2023-10-01 08:02 | Emergency (ER) | payer SELFPAY ==
--- NOTE | 2023-10-01 09:41 | RAD REPORT ---
EXAM DESCRIPTION: RAD - Knee Left 3 View - 10/01/2023 9:08 am CLINICAL HISTORY: PAIN COMPARISON: Knee Left 3 View dated 03/11/2023 TECHNIQUE: Left knee, 3 views. FINDINGS: No fracture, dislocation or periosteal reaction. Sclerotic eccentric endosteal lesion rachel g the lateral cortex of the distal femoral metaphysis. No joint effusion seen. No joint space narrowi ng. No soft tissue abnormality. IMPRESSION: No acute osseous abnormality. 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
--- NOTE | 2023-10-01 10:12 | ER ---
Nurse's Notes [facility] Name: Kaylen Salinas Age: 32 yrs Sex: Female : 1990 Arrival Date: 10/01/2023 Time: 08:02 Bed 11 Private MD: Diagnosis: Pain in right knee Presentation: 09/30 08:13 Chief complaint: Patient states: left knee pain X 1 week, [place] and the pain is worse now. Coronavirus screen: At this time, the client does not indicate any symptoms associated with coronavirus-19. Ebola Screen: Patient negative for fever greater than or equal to 101.5 degrees Fahrenheit, and additional compatible Ebola Virus Disease symptoms Patient denies exposure to infectious person. Patient denies travel to an Ebola-affected area in the 21 days before illness onset. No symptoms or risks identified at this time. Initial Sepsis Screen: Does the patient meet any 2 criteria? No. Patient's initial sepsis screen is negative. Does the patient have a suspected source of infection?. Risk Assessment: Do you want to hurt yourself or someone else? Patient reports no desire to harm self or others. Onset of symptoms was September 25, 2023. 08:13 Method Of Arrival: Wheelchair iw 08:13 Acuity: ANA 4 iw Historical: - Allergies: 08:15 No Known Allergies; iw - PMHx: 08:15 Anxiety; Bipolar disorder; depressive disorder; hypoadrenalism; HYPOPITUITARISM; iw Hypothyroidism; PTSD; - PSHx: 08:15 Appendectomy; Leg - Left; iw - Immunization history:: Adult Immunizations. - Infectious Disease History:: Denies. - Social history:: Smoking status: Reported history of juuling and/or vaping. Screenin:45 [facility] ED Fall Risk Assessment (Adult) History of falling in the last 3 months, iw including since admission No falls in past 3 months (0 pts). Abuse screen: Denies threats or abuse. Denies injuries from another. Nutritional screening: No deficits noted. Tuberculosis screening: No symptoms or risk factors identified. Assessment: 08:31 General: Appears in no apparent distress. Behavior is calm, cooperative. Pain: iw Complains of pain in left knee. 10:00 Reassessment: Patient appears in no apparent distress at this time. Patient and/or iw family updated on plan of care and expected duration. Pain level reassessed. Patient is alert, oriented x 3, equal unlabored respirations, skin warm/dry/pink. Vital Signs: 08:13 BP 92 / 65; Pulse 61; Resp 16; Temp 97.3; Pulse Ox 100% on R/A; Weight 72.57 kg; Height iw 5 ft. 3 in. ; Pain 6/10; 08:13 Body Mass Index 28.34 (72.57 kg, 160.02 cm) iw 08:13 Pain Scale: Adult iw ED Course: 08:05 Patient arrived in ED. mr 08:14 Triage completed. iw 08:15 Arm band placed on. iw 08:16 Alon Easley DO is Attending Physician. ms3 08:31 Liudmila Barnard, RN is Primary Nurse. iw 08:32 Patient has correct armband on for positive identification. iw 09:09 Knee Left 3 View XRAY In Process Unspecified. EDMS 10:00 Provided Education on: knee immobilizer . iw 10:11 Chris Andrade MD is Referral Physician. ms3 10:49 No provider procedures requiring assistance completed. Patient did not have IV access iw during this emergency room visit. Administered Medications: No medications were administered Medication: 08:45 VIS not applicable for this client. iw Outcome: 10:11 Discharge ordered by . ms3 10:49 Discharged to home via wheelchair, with family, iw 10:49 Condition: good 10:49 Discharge instructions given to patient, family, Instructed on discharge instructions, follow up and referral plans. Demonstrated understanding of instructions, follow-up care, medications, Prescriptions given X 2, 10:50 Patient left the ED. iw Signatures: Dispatcher [employer] EDOH Lelo Stallworth, Reg Reg mr Liudmila Barnard, RN RN iw Alon Easley DO DO ms3 Corrections: (The following items were deleted from the chart) 08:32 08:31 Pain: Complains of pain in right knee iw iw
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
[2023-10-01 11:03] VITALS: BP 92/65; TEMP 97.3; O2SAT 100
== END 2023-10-01 10:50 | disposition home or self-care (01) ==
LOC: ER 08:02
DX: M25.561 Pain in right knee (principal)
CPT/HCPCS: 99283